=== PATIENT | female | born 1955 | race Caucasian/White ===

== ENCOUNTER 2017-03-14 14:17 | Emergency (ER) | payer OTHER ==
[~2017-03-14] VITALS: Ht 167.6 cm; Wt 90.7 kg
[2017-03-14] MEDS ORDERED: ATROVENT HFA12.9 GM INH (14:44)
[2017-03-14] MEDS ORDERED: KLOR-CON M1515 MEQ PO (14:45)
[2017-03-14] MEDS ORDERED: ZYLOPRIM100 MG PO (14:45)
[2017-03-14] MEDS ORDERED: LIPITOR20 MG PO (14:45)
[2017-03-14] MEDS ORDERED: NORVASC10 MG PO (14:45)
[2017-03-14] MEDS ORDERED: KLOR-CON M1515 MEQ (14:45)
[2017-03-14] MEDS ORDERED: LASIX40 MG PO (14:46)
[2017-03-14] MEDS ORDERED: SYNTHROID112 MCG PO (14:46)
[2017-03-14] MEDS ORDERED: FLORAJEN3 CAPS460 MG (14:46)
[2017-03-14] MEDS ORDERED: ESTRACE1 MG PO (14:47)
[2017-03-14] MEDS ORDERED: ATIVAN1 MG PO (14:47)
[2017-03-14] MEDS ORDERED: ALBUTEROL0.63 MG/3 INH (14:47)
[2017-03-14] MEDS ORDERED: OSTERA TABLET1 EACH PO (14:48)
[2017-03-14] MEDS ORDERED: AUGMENTIN 875-1 EACH PO (21:08)
[2017-03-14] MEDS ORDERED: OXYCODONE HCL5 MG PO (21:08)
[2017-03-14] MEDS ORDERED: CYCLOBENZAPRINE5 MG PO (21:09)
[2017-03-14] MEDS ORDERED: LIDODERM1 EACH TD (21:11)
== END 2017-03-14 21:25 | disposition home or self-care (01) ==
LOC: ED 14:17
DX: N39.0 Urinary tract infection, site not specified (principal); M62.830 Muscle spasm of back; J44.9 Chronic obstructive pulmonary disease, unspecified; E03.9 Hypothyroidism, unspecified; I10 Essential (primary) hypertension; Z98.51 Tubal ligation status; F17.200 Nicotine dependence, unspecified, uncomplicated; Z79.899 Other long term (current) drug therapy; E05.00 Thyrotoxicosis with diffuse goiter without thyrotoxic crisis or storm
CPT/HCPCS: 74177; 80053; 81001; 85025; 87088; 96361; 96374; 96375; 99284; J1170; J2405; J7030; Q9967